=== PATIENT | female | born 1985 | race African-American/Black ===

== ENCOUNTER 2023-12-07 08:33 | Emergency (ER) | payer BC, SELFPAY ==
[2023-12-07 08:56] VITALS: BP 124/71; PULSE 110; RESP 16; TEMP 37.3; O2SAT 98
[2023-12-07 13:09] VITALS: BP 123/79; PULSE 71; RESP 18; O2SAT 99
--- NOTE | 2023-12-07 13:59 | ED.SKABFB ---
HPI - Skin/Abscess/Foreign Bdy General Chief complaint: Skin/Abscess/Foreign Body Stated complaint: abscess right breast Time Seen by Provider: 12/07/23 13:16 This is a 38-year-old female presents with concerns for a her right breast that she noticed approximately 10 days ago. she states it has only been occurring in her right breast but it has changed location fluctuated in size both increasing and decreasing over the past week and half. She has not been , has not had nipple discharge, and denies any appreciable overlying skin changes. No fevers or weight changes or night sweats (does get slightly warm overnight but sleeps under weighted blanket). in addition she has had decreased p.o. intake decreased appetite for the past 6 days with some nausea episode of vomiting yesterday and this morning. 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 her last menstrual period was in mid October. Her periods are all his irregular so she is not particularly concerned that this she might be slightly late this month. she states applying a heating pad has helped with the breast mass and pain and she has not otherwise taken any analgesic medications. Source: patient Mode of arrival: ambulatory Limitations: no limitations Related Data Allergies Allergy/AdvReac Type Severity Reaction Status Date / Time No Known Allergies Allergy Verified 12/07/23 12:50 [facility] Social History Social History Additional living arrangements comments: Exam Narrative: GENERAL: Well-appearing, well-nourished, and in no acute distress. HEAD: Normocephalic, atraumatic. EYES: Non injected, non icteric ENT: Nares clear, no rhinorrhea or epistaxis. moist mucous membranes. NECK: Supple. CHEST/Breast: Speaking in full sentences. No respiratory distress. Pendulant breasts grossly symmetric at 1st appearance initially. No scars/deformities. Dense bilateral breasts. Right breast with large mass along right upper quadrant and left upper quadrant (approximately 7 o'clock to 3 o'clock) but without extension into tail of [place]. No lymphadenopathy in bilateral axillae. HEART: Regular rate and rhythm. Normal bilateral areolas, brown. No nipple discharge. Nipples not inverted. Skin not dry/scaly/no peu d'orange appearance/sores. ABDOMEN: Obese, Soft, nondistended. EXTREMITIES: Normal range of motion. No edema. SKIN: Warm, dry, no rash. NEURO: No focal deficits. Alert and oriented x3. PSYCH: Normal mood and affect. Course Vital Signs Vital signs: Vital Signs Temperature 99.1 F 12/07/23 08:56 Pulse Rate 110 H 12/07/23 08:56 Respiratory Rate 16 12/07/23 08:56 Blood Pressure 124/71 12/07/23 08:56 Pulse Oximetry 98 12/07/23 08:56 Oxygen Delivery Room Air 12/07/23 08:56 Temperature 99.1 F 12/07/23 08:56 Pulse Rate 76 12/07/23 18:20 Respiratory Rate 17 12/07/23 18:20 Blood Pressure 147/86 H 12/07/23 18:20 Pulse Oximetry 99 12/07/23 18:20 Oxygen Delivery Room Air 12/07/23 08:56 MDM - Skin/Abscess/Foreign Bdy MDM Narrative Medical decision making narrative: Patient presents with concern for a mass in her right breast which has been present for 10 days and is changing in size and location (fluctuating location within right breast and increasing and decreasing in size). she denies any fevers or overlying skin changes. Physical exam is appreciable for large mass in the right upper and left upper quadrants of the right breast without extension to the tail of stents, extension to the areola, nipple discharge, or lymphadenopathy. There is no skin induration or overlying skin changes suggestive of an abscess or cellulitis. I do believe patient needs further work-up for this but in the outpatient setting. Plan is to assess patient for covid and influenza a
[2023-12-07] MEDS: ONDANSETRON HCL ODT 4 MG TABLET PO (14:26)
[2023-12-07 14:30] LABS: Influenza A QL RT-PCR Negative (Negative); Influenza B QL RT-PCR Negative (Negative); SARS-CoV-2 RNA PCR Negative (Negative)
[2023-12-07 15:40] VITALS: BP 129/83; PULSE 67; RESP 18; O2SAT 99
[2023-12-07 18:20] VITALS: BP 147/86; PULSE 76; RESP 17; O2SAT 99
== END 2023-12-07 18:21 | disposition home or self-care (01) ==
PROVIDERS: Emergency Provider Student in an Organized Health Care Education/Training Program
DX: N63.10 Unspecified lump in the right breast, unspecified quadrant (principal); R11.2 Nausea with vomiting, unspecified; Z20.822 Contact with and (suspected) exposure to COVID-19
CPT/HCPCS: 87636; 99283; A9270

== ENCOUNTER 2023-12-15 09:23 | Outpatient (CLI) | payer BC, SELFPAY ==
--- NOTE | ~2023-12-15 | MMUS_ITS ---
EXAMINATION: MM diagnostic renu BI w vic, US breast RT complete HISTORY: Right breast pain. Abscess for 2 weeks. TECHNIQUE: Additional 3-D tomosynthesis images of the breasts were performed and synthetic 2-D images were generated. CAD analysis was submitted and interpreted. High resolution complete right breast ul trasound was performed. COMPARISON: No prior studies for comparison. BREAST PARENCHYMAL COMPOSITION: Dense: The breasts are extremely dense, which lowers the sensitivity of mammography. FINDINGS: MAMMOGRAPHIC FINDINGS: There is a large complex mass involving a large area of the right breast in all quadrants. There are no associated calcifications. There is no mammographic evidence for malignancy in the left breast. ULTRASOUND: Complete US of all 4 quadrants of the right breast and retroareolar region was reviewed. The right br east is diffusely heterogeneous with multiple areas of loculated fluid and multiple debris, suspiciou s for large abscess with phlegmonous change given the clinical history. IMPRESSION: 1. Large complex heterogeneous mass with areas of loculated fluid and mobile debris in the right [address] corresponding to the mass seen on mammography. This likely represents an abscess. 2. Recommend ultrasound-guided aspiration for confirmation. BI-RADS CATEGORY 3-PROBABLY BENIGN FINDING . Reviewed, dictated and finalized at location A. ECHNICAL ENGINEERING TECHNICIAN IMPRESSION: 1. Large complex heterogeneous mass with areas of loculated fluid and mobile de bris in the right breast corresponding to the mass seen on mammography. This li nii represents an abscess. 2. Recommend ultrasound-guided aspiration for confirmation. BI-RADS CATEGORY 3-PROBABLY BENIGN FINDING .
== END 2023-12-15 09:24 ==
PROVIDERS: PCP Student in an Organized Health Care Education/Training Program; Visit Provider Student in an Organized Health Care Education/Training Program
DX: N61.1 Abscess of the breast and nipple (principal)
CPT/HCPCS: 76641; 77062; 77066; G0279

== ENCOUNTER 2023-12-20 12:38 | Observation (INO) | payer BC, SELFPAY ==
[2023-12-20] VITALS (12 sets, daily range): BP systolic 120–138; BP diastolic 65–90; PULSE 83–116; RESP 12–21; TEMP 36.1–36.7; O2SAT 93–100
[2023-12-20] MEDS: MORPHINE SULFATE (*CRX) 4 MG/ML INJ IV PUSH (13:43)
[2023-12-20] MEDS: ONDANSETRON INJ 4 MG/2 ML VIAL IV PUSH (13:43)
--- NOTE | 2023-12-20 13:45 | ED.SKABFB ---
HPI - Skin/Abscess/Foreign Bdy General Chief complaint: Skin/Abscess/Foreign Body Stated complaint: lump breast Time Seen by Provider: 12/20/23 13:07 History of Present Illness HPI narrative: Patient is a 38-year-old female who presents ER with right breast pain. She was seen in the ER on 12/07/2023. She was referred to Gynecology. They then performed an outpatient mammogram and breast ultrasound which shows a large abscess. Patient has not had any referral to breast surgery. She has been on oral cephalexin. Pain is worsening and she has been dealing with this for 3 weeks so she came in today for further evaluation. No drainage. No fevers or chills or sweats. Related Data Home Medications Medication Instructions Recorded Confirmed cephalexin 500 mg capsule mg 12/20/23 Allergies Allergy/AdvReac Type Severity Reaction Status Date / Time No Known Allergies Allergy Verified 12/20/23 17:32 Review of Systems Review of Systems: All systems reviewed & are unremarkable except as noted in HPI and below Constitutional: Constitutional: Reports no additional constitutional complaints ENT: Reports system reviewed and no additional complaints, except as documented Cardiovascular: Cardiovascular: Reports no additional cardiovascular complaints Respiratory: Respiratory: Reports no additional respiratory complaints Integumentary/Breasts: Skin/Breast: Reports breast pain, Reports breast mass and Reports erythema PMFSH Social History Social History Smoking status: Never smoker Alcohol intake: never Substance use: never Substance use type: does not use Do You Feel Safe in your Home?: Yes Lack of Transportation: No Lack of Food: Never True Current Housing: I Have Housing Concerned About Future Housing: No Difficulty Paying Gas/Electric Bills: No Difficulty Paying for Meds: No Currently Unemployed: No Education: Don't Know Difficulty w/ Childcare or Family Care: No Spiritual care concerns: No Exam Narrative: GENERAL: Well-appearing, Morbidly obese, and in no acute distress. HEAD: Normocephalic, atraumatic. ENT: Mucous membranes moist. NECK: Supple. CHEST: Clear to auscultation. No respiratory distress. HEART: Regular rate and rhythm. Normal peripheral pulses. EXTREMITIES: Normal range of motion. No edema. SKIN: Warm, dry, no rash. Right breast with large fluctuant abscess over the medial aspect of the areola and breast. There is slight erythema but no significant cellulitis. Normal left breast. NEURO: Alert and oriented x3. PSYCH: Normal mood and affect. Course Course Emergency Course: 1345: Discussed with Dr. Mg, she is at the bedside examining the patient. we have discussed patient's outpatient mammogram and ultrasound. 1400: Patient will go to the OR. Lab work ordered. Patient has been NPO since yesterday evening. Vital Signs Vital signs: Vital Signs Temperature 97.4 F L 12/20/23 12:40 Pulse Rate 116 H 12/20/23 12:40 Respiratory Rate 20 12/20/23 12:40 Blood Pressure 122/74 12/20/23 12:40 Pulse Oximetry 100 12/20/23 12:40 Oxygen Delivery Room Air 12/20/23 12:40 Temperature 98.0 F 12/20/23 18:10 Pulse Rate 88 12/20/23 18:10 Respiratory Rate 17 12/20/23 18:10 Blood Pressure 137/90 12/20/23 18:10 Pulse Oximetry 97 12/20/23 18:10 Oxygen Delivery Room Air 12/20/23 17:47 Oxygen Flow Rate 8 12/20/23 16:00 MDM - Skin/Abscess/Foreign Bdy Lab Data 12/20/23 13:42 12/20/23 13:42 Labs: Lab Results 12/20/23 12/20/23 Range/Units 13:41 13:42 WBC 14.7 H (4.5-10.0) K/mm3 RBC 4.48 (4.2-5.4) M/mm3 Hgb 12.4 (12.0-15.0) g/dL Hct 39.5 (37.0-47.0) % MCV 88.2 (80-100) fl MCH 27.7 (26-34) pg MCHC 31.4 L (32-36) g/dl RDW 13.6 (11.5-14.5) % Plt Count 511 H (150-375) k/mm3 MPV 9.5 (7.4-10.4) fl Immature Gran % (Auto) 0.6 H (0-0.5) % Neut
--- NOTE | 2023-12-20 13:52 | P.CONGS_ITS ---
Assessment and Plan Assessment and plan (1) Abscess of breast: Code(s): N61.1 - Abscess of the breast and nipple Status: Acute (2) Abscess of right breast: Code(s): N61.1 - Abscess of the breast and nipple Status: Acute Assessment and Plan: 38-year-old female presenting for evaluation of 2-3 week history of worsening right breast pain. On exam, she has a very enlarged and erythematous right breast with the area of fluctuance that is consistent with an abscess. Images performed during a prior visit were reviewed and patient would benefit from incision and drainage of this large breast abscess. Risks of the procedure were discussed with the patient which included but not limited to risk of bleeding, infection, recurrence, asymmetry, scar, wound healing problems, pain, possible need for additional procedures in the future, as well as the risk of anesthesia. all questions were answered patient agrees to proceed. We will plan for OR today for incision and drainage of large right breast abscess under anesthesia. Plan Thank you for allowing me to participate in the care of Ms. Rivera. History of Present Illness Consult details Consult date: 12/20/23 Narrative: 38-year-old female who presents to the ER today with 3 week history of right breast pain. Patient was previously evaluated by ER on Dec 07, and intruted to see her obgyn. She was seeing by her OBGYN last week, and placed on cephalexin. She reports some chills at home but no fevers. Mild nausea and 1 episode of emesis today. US and mammogram performed last week showed large loculated abscess, and patient returned to ER for further evaluation. She has been NPO sin ce midnight. Review of Systems Review of Systems: All systems reviewed & are unremarkable except as noted in HPI and below Meds Home Medications and Allergies Home Medications Medication Instructions Recorded Confirmed Type cephalexin 500 mg capsule mg 12/20/23 History Allergies Allergy/AdvReac Type Severity Reaction Status Date / Time No Known Allergies Allergy Verified 12/20/23 12:46 Vital Signs Vital Signs - 24 hr 12/20/23 12:40 Temperature 36.3 C L Pulse Rate 116 H Respiratory Rate 20 Blood Pressure 122/74 Pulse Oximetry 100 Oxygen Delivery Room Air Exam Narrative: Right breast appears significantly enlarged and erythematous especially around medial aspect of areola. No ecchymosis or crepitus noted. Exam limited due to patient's pain. Const: General: comfortable and no acute distress Resp: Effort & Inspection: normal respiratory effort Cardio: Rate: regular rate and tachycardic Skin: General skin exam: normal color Extrem: General: normal to inspection Results Labs 12/20/23 13:42 12/20/23 13:42 Labs: All other labs normal.
[2023-12-20 13:55] LABS: Basophils Absolute Auto 0.1 K/mm3 (0.0-0.1); Basophils Percent Auto 0.3 % (0.2-1.2); Eosinophils Absolute Auto 0.1 K/mm3 (0-0.3); Eosinophils Percent Auto 0.8 % (0-4.4); Hematocrit 39.5 % (37.0-47.0); Hemoglobin 12.4 g/dL (12.0-15.0); Immature Granulocyte Absolute 0.09 K/mm3 (0.00-0.031); Immature Granulocyte Percent A 0.6 % (0-0.5); Lymphocytes Absolute Auto 3.63 K/mm3 (0.9-3.2); Lymphocytes Percent Auto 24.7 % (18.3-44.2); Mean Corpuscular HGB Conc 31.4 g/dl (32-36); Mean Corpuscular Hemoglobin 27.7 pg (26-34); Mean Corpuscular Volume 88.2 fl (80-100); Mean Platelet Volume 9.5 fl (7.4-10.4); Monocytes Absolute Auto 1.2 K/mm3 (0.1-0.6); Monocytes Percent Auto 8.2 % (2.6-8.5); Neutrophils Absolute Auto 9.6 K/mm3 (1.3-6.7); Neutrophils Percent Auto 65.4 % (45.5-73.1); Platelet Count Result 511 k/mm3 (150-375); Red Blood Count 4.48 M/mm3 (4.2-5.4); Red Cell Distribution Width 13.6 % (11.5-14.5); White Blood Count 14.7 K/mm3 (4.5-10.0)
--- NOTE | 2023-12-20 13:59 | WPDANESEPPF ---
Anes - Initial Pre Proc Eval Procedure: Operation Date: 12/20/23 14:30 Proposed Procedures p Incision and Drainage Right Breast Abscess - Norma Jose Mg MD Date/Time: 12/20/23 13:59 Pre Op Diagnosis: lump breast Patient Data Age: 38 Gender: F Height: 1.73 m Weight: 189 kg Last Vital Signs Temp 36.3 C L 12/20/23 12:40 Pulse 116 H 12/20/23 12:40 Resp 20 12/20/23 12:40 BP 122/74 12/20/23 12:40 Pulse Ox 100 12/20/23 12:40 O2 Del Method Room Air 12/20/23 12:40 Allergies Allergy/AdvReac Type Severity Reaction Status Date / Time No Known Allergies Allergy Verified 12/20/23 12:46 Home Medications Medication Instructions Recorded Confirmed Type cephalexin 500 mg capsule mg 12/20/23 History Laboratory Tests 12/20/23 12/20/23 13:41 13:42 WBC Pending RBC Pending Hgb Pending Hct Pending MCV Pending MCH Pending MCHC Pending RDW Pending Plt Count Pending MPV Pending Immature Gran % (Auto) Pending Neut % (Auto) Pending Lymph % (Auto) Pending [place] % (Auto) Pending Eos % (Auto) Pending Baso % (Auto) Pending Lymph # (Auto) Pending [place] # (Auto) Pending Eos # (Auto) Pending Baso # (Auto) Pending Abs Immat Gran (auto) Pending Absolute Neuts (auto) Pending Absolute Nucleated RBC Pending Nucleated RBC % Pending PT Pending INR Pending APTT Pending Sodium Pending Potassium Pending Chloride Pending Carbon Dioxide Pending Anion Gap Pending BUN Pending Creatinine Pending Estim Creat Clear Calc Pending Estimated GFR Pending Glucose Pending Calcium Pending Total Bilirubin Pending AST Pending ALT Pending Alkaline Phosphatase Pending Total Protein Pending Albumin Pending Patient hx anesthesia problems: none Family hx anesthesia problems: none Results Review: All pre-operative results and documents have been reviewed as part of the pre-operative evaluation. Anes - Eval Final PreProcedure Day of Procedure 12/20/23 13:59 Patient weight: super morbidly obese Heart: regular rate and rhythm Lungs: clear to auscultation Airway: Mallampati scale class III Neurological: alert and oriented Last oral intake: >/= 8 hours ASA classification: III Emergent: yes Anesthetic plan: proceed Anesthesia type and monitoring: general ETT and standard monitoring Results Review: All pre-operative results and documents have been reviewed as part of the pre-operative evaluation. Informed Consent: The patient's anesthetic plan and its attendant risks and benefits were discussed with the patient/family/POA. Questions were solicited and answers provided to the satisfaction of the patient/family/POA.
[2023-12-20 14:06] LABS: Alanine Aminotransferase 14 U/L (6-35); Albumin Level 3.5 g/dL (3.5-5.1); Alkaline Phosphatase 107 U/L (38-126); Anion Gap 9 mmol/L (8-16); Aspartate Amino Transferase 22 U/L (14-36); Blood Urea Nitrogen 6 mg/dL (7-17); Calcium 8.9 mg/dL (8.4-10.2); Carbon Dioxide 29 mmol/L (22-30); Chloride 96 mmol/L (98-107); Estimated CRCL calculation 146 ml/min; Estimated Glomerular Filt Rate > 60; Glucose 247 mg/dL (65-110); Potassium 3.3 mmol/L (3.4-5.0); Sodium 134 mmol/L (137-145)
[2023-12-20 14:11] LABS: INR 1.2; Partial Thromboplastin Time 32.1 SECONDS (22.3-36.8); Prothrombin Time 16.3 Seconds (11.1-14.7)
[2023-12-20] MEDS: LACTATED RINGERS 1,000 ML 30 ML IV CONT ×2 (15:01→16:00)
[2023-12-20] MEDS: ceFAZolin 3 GM/D5W 100 ML 100 ML IVPB (15:20)
[2023-12-20] MEDS: LACTATED RINGERS 1,000 ML 100 ML IV CONT (16:00)
[2023-12-20 16:10] LABS: Glucose Point of Care 240 mg/dl (65-105)
[2023-12-20] MEDS: fentaNYL CITRATE INJ (*CRX) 100 MCG/2 ML VIAL 25 MCG IV PUSH ×2 (16:11→16:20)
--- NOTE | 2023-12-20 16:55 | P.OP_ITS ---
Procedure Note - Detailed Date of Procedure 12/20/23 Pre-op Diagnosis Right breast abscess Post-op Diagnosis Same Procedure Performed Incision and drainage of large right breast abscess, washout, sharp debridement, and placement of [place] drain Surgeon Norma Mg MD Anesthesia General Indications 38-year-old female presented to the ER with 3 week history of worsening right breast pain. On exam, her right breast was extremely enlarged compared to the left with associated induration and erythema. She had a very large area of fluctuance that was consistent with previous ultrasound was obtained a week prior that that demonstrated a large loculated abscess. Given the size of the fluid collection, she was recommended for incision and drainage in the operating room. Risks of the procedure were discussed with the patient which included but not limited to risk of bleeding, infection, damage to nearby structures, recurrence, possible need for additional procedures in the future, wound healing problems, scar, pain, asymmetry as well as the risk of anesthesia. All questions were answered patient agrees to proceed. Description of Procedure Patient was identified in the preoperative holding area and brought to the operating room suite. She was laid supine in the operating table and sequential compression devices were applied. General anesthesia was induced without difficulty. The right chest area was prepped and draped in a sterile fashion. An incision was made at the area of fluctuance on the medial aspect of the breast just medial to the areola and dissection was carried down through the subcutaneous tissue until the large abscess cavity was encountered. Copious amount of purulent fluid was evacuated for a total of 1100 cc. A culture was obtained, and the cavity was then irrigated with 3 L of saline. There was a small area of necrotic tissue superficially that was sharply debrided that was approximately 3 cm in length by 1 cm across. I probed the entire cavity to ensure all the loculations were completely broken up and the cavity measured almost the entire length and with of the breast that was approximately 20 cm x 15cm. Given the large area, this was felt to be better approached with a [place] drain for continuous drainage as opposed to packing. A large Apollo drain was then placed in the cavity and secured to the skin with a nylon suture. Another opening was performed in the skin on the lateral part of the areola in the [place] was also brought out through this incision and secured to the skin also with a nylon suture. The previous incision area was loosely approximated with interrupted 3-0 Prolene sutures. A compression dressing was applied over the breast with gauze followed by ABD pads and foam tape. Patient was then awoken from anesthesia and taken to the recovery area in stable condition. All needles, instruments, and sponge counts were correct as reported by the operating room staff. Patient tolerated the procedure well with no immediate complications. Estimated Blood Loss 10 Drains Yes ([place] x1) Packing No Pathology None sent Complications No immediate complications Condition Stable Disposition PACU [facility] Billing Surgery - Charge Forward: Surgery Billing
[2023-12-20] MEDS: PIPERACILLN/TAZ 3.375GM/NS50ML 3.375 GM/50 ML BAG IVPB (17:50)
[2023-12-20] MEDS: DOCUSATE SODIUM 100 MG CAPSULE PO (17:50)
[2023-12-20] MEDS: VANCOMYCIN 1,250 MG/NS 250 ML 1,250 MG/250 ML BAG 125 MG IVPB (18:51)
--- NOTE | 2023-12-20 19:23 | PM.IMCN ---
Assessment and Plan Assessment and plan (1) Abscess of right breast: Code(s): N61.1 - Abscess of the breast and nipple Status: Acute Assessment and Plan: - ultrasound and mammogram done last week showed large loculated abscess - primary admission through breast surgery, Saurav EVANS currently following with case - I/D, washout, debridement, and placement of [place] drain performed today, 12/19 - continue wound care and drain management - wound culture obtained on 12/19 - started on Vanc and Zosyn on 12/19. Given Ancef x1. - pain management - antiemetics p.r.n. (2) Elevated glucose: Code(s): R73.09 - Other abnormal glucose Status: Acute Assessment and Plan: - patient educated at bedside about glucose checks, current glucose levels, and high probability of diabetes diagnosis - hypoglycemia protocol - POC blood glucose ACHS - glucose in the evening 404. add glargine 5 units subQ x1, 5 units regular insulin subQ x1, bedside RN verbally instructed to to give 7 units of NovoLog to increase corrective dose - correct regimen ordered - low dose TIDWM and HS, suspect patient may need higher dosing. - A1C ordered - will need soaking pit operator consultation if A1C abnormal - diabetic diet ordered Plan Patient here with large loculated right breast abscess, I&D/Washout/Drain placement in the OR today (12/19) with 1100 cc of purulent drainage, started on Vancomycin and Zosyn. Culture pending. Glucose levels very elevated, suspect patient is diabetic. A1C pending. Diabetic orders in place. Home Meds/Chronic Conditions -none Diet: Regular GI Prophylaxis: Not currently indicated DVT Prophylaxis: SCDs Lines: Peripheral Code Status: Full code HPI Date of Consult Consult date: 12/20/23 Requesting Physician: Norma Mg MD Primary Care Provider: PHYSICIAN NOT ON STAFF Consult Narrative Reason for consult: Medical Managment Narrative: 38 y/o F presents here with R breast pain with no known PMH or previous surgeries. Patient presented to the ED from home for evaluation of right breast pain. Patient had been previously seen in the emergency department on 12/07/2023 for same complaint. Breast pain has been ongoing for the past 2 to 3 weeks. She was referred to Gynecology at that time. Patient had outpatient mammogram and breast ultrasound performed, which she reports showed a large abscess. Currently on Keflex. No active drainage from site. Denying associated fever, chills, or body aches. No previous abscesses or wounds. Has occasionally developed small pimples to the lower folds of her breasts. No known family history of cancers. No known trauma or wound prior to erythema and swelling development. Patient reports that when she first noted the area, it was firm and approximately the size of the orange. Overtime area increased to the size of a melon and became fluctuant. Initial VS at presentation: 97.4 F, HR 116, RR 20, 122/74, 100% on RA. ED workup showed: WBC 14.7, no anemia, INR 1.2, potassium 3.3, glucose 247, creatinine 0.8. Patient was taken to the OR for I&D of large right breast abscess, washout, sharp debridement, and placement of [place] drain. Per procedure note, when abscess cavity was dissected there was copious amount of purulence fluid. Total evacuation of 1100 cc. Cavity measured approximately 20 x 15 cm. Review of Systems Review of Systems: All systems reviewed & are unremarkable except as noted in HPI and below PMFSH Social History Social History Smoking status: Never smoker Alcohol intake: never Substance use: never Substance use type: does not use Do You Feel Safe in your Home?: Yes Lack of Transportation: No Lack of Food: Never True Current Housing: I Have Housing Concerned About Future Housing: No Difficulty Paying Gas/Electric Bills: No Difficulty Paying for Meds: No Currently Unemployed: No Education: Don't Know
[2023-12-20] MEDS: VANCOMYCIN 1,250 MG/NS 250 ML 1,250 MG/250 ML BAG 166.67 MG IVPB (20:49)
[2023-12-20] MEDS: INSULIN ASPART (*BKC) 100 UNITS/ML 7 UNITS SUB-Q (23:08)
[2023-12-20] MEDS: INSULIN HUMAN REGULAR (*BKC) 100 UNITS/ML SUB-Q (23:08)
[2023-12-20 23:13] LABS: Glucose Point of Care 404 mg/dl (65-105)
[2023-12-21] MEDS: PIPERACILLN/TAZ 3.375GM/NS50ML 3.375 GM/50 ML BAG IVPB ×3 (00:31→13:08)
[2023-12-21 02:09] LABS: Glucose Point of Care 395 mg/dl (65-105)
[2023-12-21 02:42] VITALS: BP 138/79; PULSE 79; RESP 20; TEMP 36.1; O2SAT 97
[2023-12-21] MEDS: VANCOMYCIN 1,500 MG/NS 500 ML 1,500 MG/500 ML BAG 250 MG IVPB (06:09)
[2023-12-21 07:14] LABS: Hematocrit 34.7 % (37.0-47.0); Hemoglobin 10.9 g/dL (12.0-15.0); Mean Corpuscular HGB Conc 31.4 g/dl (32-36); Mean Corpuscular Hemoglobin 27.7 pg (26-34); Mean Corpuscular Volume 88.3 fl (80-100); Mean Platelet Volume 9.8 fl (7.4-10.4); Platelet Count Result 427 k/mm3 (150-375); Red Blood Count 3.93 M/mm3 (4.2-5.4); Red Cell Distribution Width 13.3 % (11.5-14.5); White Blood Count 10.5 K/mm3 (4.5-10.0)
[2023-12-21 07:31] LABS: Anion Gap 5 mmol/L (8-16); Blood Urea Nitrogen 9 mg/dL (7-17); Calcium 8.5 mg/dL (8.4-10.2); Carbon Dioxide 29 mmol/L (22-30); Chloride 97 mmol/L (98-107); Estimated CRCL calculation 100 ml/min; Estimated Glomerular Filt Rate 60; Glucose 325 mg/dL (65-110); Potassium 3.5 mmol/L (3.4-5.0); Sodium 131 mmol/L (137-145)
[2023-12-21 08:00] VITALS: BP 139/84; PULSE 71; RESP 18; TEMP 36; O2SAT 99
[2023-12-21 08:16] LABS: Glucose Point of Care 293 mg/dl (65-105)
[2023-12-21 08:49] LABS: Hemoglobin A1C 12.1 % (<5.7)
[2023-12-21] MEDS: INSULIN ASPART (*BKC) 100 UNITS/ML SUB-Q ×2 (09:01→13:09)
[2023-12-21 11:45] LABS: Glucose Point of Care 317 mg/dl (65-105)
[2023-12-21 12:00] VITALS: BP 142/97; PULSE 73; RESP 18; TEMP 36; O2SAT 99
--- NOTE | 2023-12-21 12:32 | PM.DS ---
DS: Admitting Diagnosis Discharge Date 12/21/2023 Admitting Diagnosis 1. Right breast abscess DS: Discharge Diagnosis Discharge Diagnosis (1) Abscess of right breast: Code(s): N61.1 - Abscess of the breast and nipple Status: Acute Assessment and Plan: Patient underwent incision and drainage of right breast abscess on December 19 with placement of a [place] drain. Patient was instructed on daily dressing changes and she will be returning to see me next week for a follow-up visit. (2) Diabetes mellitus: Qualifiers: Diabetes mellitus type: type 2 Code(s): E11.9 - Type 2 diabetes mellitus without complications Status: Acute Assessment and Plan: Patient was diagnosed with new onset diabetes during hospital stay after blood sugars were noted to be consistently elevated. Her hemoglobin A1c was 12.1, which again supported the diagnosis. Patient was evaluated by hospital educator and discharged home on insulin regimen with plan to follow-up with a primary care physician for further recommendation and management of her diabetes. Plan Plan discharge today with follow-up with breast surgery for management and wound care of right breast. Plan to follow up with primary care for evaluation and management of newly diagnosed diabetes. DS: Summary Hospital Course Reason for hospitalization: Hospital Course: Patient was admitted for observation after undergoing incision and drainage of large right breast abscess on December 19. She received IV antibiotics overnight and did not require any pain medication. On postop day 1, she was doing well, and reported no pain on examination. She has been afebrile and her leukocytosis has normalized. Patient was found to have poorly controlled blood sugars during her hospitalization with the hemoglobin A1c of 12.1, indicating a new diagnosis of type 2 diabetes. She was evaluated by the hospital educator and placed on a insulin regimen by the hospitalist service. Patient was deemed ready for discharge on postop day 1. Status at Discharge Functional status at discharge: independent ambulation Time Spent with Patient Time attestation: Total time spent providing and/or coordinating discharge services: 45 Time spent: Greater than 30 minutes Exam Const: General: comfortable and no acute distress Eyes: General: appearance normal, both eyes and all related structures Resp: Effort & Inspection: normal respiratory effort Cardio: Rate: regular rate Skin: General skin exam: normal color Other: Right breast incisions examined today appear clean and dry. No purulent fluid or foul odor was noted. No ecchymosis or crepitus. Previously noted erythema is significantly improved from yesterday. Extrem: General: normal to inspection DS: Data Data Completed and Pending Labs on day of discharge: Labs from last 24 hours 12/21/23 12/21/23 12/21/23 11:30 08:03 06:31 WBC 10.5 H RBC 3.93 L Hgb 10.9 L Hct 34.7 L MCV 88.3 MCH 27.7 MCHC 31.4 L RDW 13.3 Plt Count 427 H MPV 9.8 Immature Gran % (Auto) Neut % (Auto) Lymph % (Auto) [place] % (Auto) Eos % (Auto) Baso % (Auto) Lymph # (Auto) [place] # (Auto) Eos # (Auto) Baso # (Auto) Abs Immat Gran (auto) Absolute Neuts (auto) Absolute Nucleated RBC Nucleated RBC % PT INR APTT Sodium 131 L Potassium 3.5 Chloride 97 L Carbon Dioxide 29 Anion Gap 5 L BUN 9 Creatinine 1.20 H Estim Creat Clear Calc 100 Estimated GFR 60 Glucose 325 H POC Capillary Glucose 317 H 293 H Hemoglobin A1c 12.1 H Calcium 8.5 Total Bilirubin AST ALT Alkaline Phosphatase Total Protein Albumin Blood Type Antibody Screen 12/21/23 12/20/23 12/20/23 00:23 20:55 16:08 WBC RBC Hgb Hct MCV MCH MCHC RDW Plt Count MPV Immature Gran %
--- NOTE | 2023-12-21 13:04 | PM.IMPN ---
Progress Note: A&P Assessment and Plan (1) Abscess of right breast: Code(s): N61.1 - Abscess of the breast and nipple Status: Acute Assessment and Plan: Ultrasound and mammogram done last week showed large loculated abscess - primary admission through breast surgery following with case - I/D, washout, debridement, and placement of [place] drain performed today, 12/19 - continue wound care and drain management - wound culture obtained on 12/19 and pending. Gram stain showing gram positive cocci - started on Vanc and Zosyn on 12/19. Given Ancef x1. - pain well controlled. Plan is home today with abx, dressing changes (2) Diabetes mellitus: Qualifiers: Diabetes mellitus type: type 2 Code(s): E11.9 - Type 2 diabetes mellitus without complications Status: Acute Assessment and Plan: Glucose elevated here. A1c 12.3 Patient educated of the new diagnosis of diabetes - hypoglycemia protocol - POC blood glucose ACHS Home today. music educator unable to see today so will order as outpatient fire operations forester to see before discharge. Home with metformin and Empagliflozin - side efects of mediations discussed She will be setting up an appointment with a PCP (one who sees other family members) (3) Morbid obesity: Code(s): E66.01 - Morbid (severe) obesity due to excess calories Status: Acute Assessment and Plan: Healthy lifestyle encouraged. Plan Diet: Diabetic DVT Prophylaxis: SCDs Code Status: Full code Subjective Date/time seen: 12/21/23 13:04 Interval history: Consulted on a 38yo female here for breast abscess. No complaints. Feels ready for discharge. Breast pain well controlled. Able to do dressing changes. Exam Narrative: AF 96.8 142/97 73 18 99% ra Gen - NARD Chest - CTA bilaterally, nml RR. right breast dressing with small amount of serosang staining CV - RRR S1/S2 Abd - Soft, obese, NT Ext - No pedal edema Psych - Nml mood and affect Skin - Warm and dry. Acanthosis nigricans noted Objective Data Vital Signs Vital Signs: Vital Signs - 24 hr 12/20/23 14:26 12/20/23 16:00 12/20/23 16:15 Temperature 98.1 F 97.4 F L Pulse Rate 107 H 98 91 Respiratory Rate 14 14 16 Blood Pressure 127/65 135/80 123/82 Pulse Oximetry 100 100 95 Oxygen Delivery Room Air Simple Face Mask Room Air Oxygen Flow Rate 8 12/20/23 16:30 12/20/23 16:45 12/20/23 17:00 Temperature Pulse Rate 91 89 89 Respiratory Rate 21 H 12 16 Blood Pressure 126/77 127/79 120/79 Pulse Oximetry 95 93 95 Oxygen Delivery Room Air Room Air Room Air Oxygen Flow Rate 12/20/23 17:25 12/20/23 17:40 12/20/23 17:47 Temperature 97.7 F 97.6 F Pulse Rate 91 88 88 Respiratory Rate 17 17 17 Blood Pressure 136/70 124/70 Pulse Oximetry 96 97 97 Oxygen Delivery Room Air Oxygen Flow Rate 12/20/23 18:10 12/20/23 20:42 12/21/23 02:42 Temperature 98.0 F 96.9 F L 96.9 F L Pulse Rate 88 83 79 Respiratory Rate 17 20 20 Blood Pressure 137/90 138/81 138/79 Pulse Oximetry 97 98 97 Oxygen Delivery Oxygen Flow Rate 12/21/23 08:00 12/21/23 12:00 Temperature 96.8 F L 96.8 F L Pulse Rate 71 73 Respiratory Rate 18 18 Blood Pressure 139/84 142/97 H Pulse Oximetry 99 99 Oxygen Delivery Oxygen Flow Rate Intake/Output Intake/Output: Intake & Output 12/18/23 12/19/23 12/20/23 12/21/23 23:59 23:59 23:59 23:59 Intake Total 1450 1200 Balance 1450 1200 Meds/Results Medications: Active Medications Generic Name Dose Route Start Last Admin Trade Name Freq PRN Reason Stop Dose Admin Acetaminophen 500 mg 12/20/23 15:57 Acetaminophen 500 Mg Tablet PO Q6H PRN Mild Pain (1-3) or Fever Hydrocodone Bitart/Acetaminophen 2 tab 12/20/23 15:57 Hydrocodone/Acetaminophen (*Crx) 5-325 Mg Tablet PO Q4H PRN Pain Rated 7-10 Hydrocodone Bitart/Acetaminophen 1 tab 12/20/23 15:57 Hydrocodone/Acetaminop
[2023-12-21] MEDS: HYDROcodone/acetaminophen (*CRX) 5-325 MG TABLET 1 TAB PO (13:09)
[2023-12-21 13:20] VITALS: BMI 63.3
--- NOTE | 2023-12-22 10:04 | WPDHPUPDATE1 ---
History and Physical Update Update Date/Time: 12/20/23 16:00 History and Physical has been reviewed, including an updated exam of the patient. There are NO changes in the patient's condition. Risks, benefits, and alternatives have been discussed and questions answered. Patient agrees to proceed with procedure.
--- NOTE | 2023-12-31 09:49 | PCCDE ---
12/31/2023 Attempted to follow up by phone. Both cell numbers in demographics attempted -> recording call unable to be completed [facility]
== END 2023-12-21 16:40 | disposition home or self-care (01) ==
LOC: ANHED 14:03 → ANHSURGERY 14:59 → ANH3MEDSUR 17:29
PROVIDERS: Student in an Organized Health Care Education/Training Program; Admitting Provider Surgery; Emergency Provider Emergency Medicine; PCP Surgery; Visit Provider Surgery
PROC: (CPT 19120; principal; 2023-12-20 14:30)
DX: N61.1 Abscess of the breast and nipple (principal); E11.9 Type 2 diabetes mellitus without complications; E66.01 Morbid (severe) obesity due to excess calories; Z68.44 Body mass index [BMI] 60.0-69.9, adult; Z79.2 Long term (current) use of antibiotics
CPT/HCPCS: 19120; 36415; 80048; 80053; 82948; 83036; 85025; 85027; 85610; 85730; 86850; 86900; 86901; 87070; 87075; 87147; 87181; 87205; 96374; 96375; 99285; A9270; G0378; J0330; J0690; J1100; J1170; J1815; J2250; J2270; J2405; J2543; J2704; J3010; J3370; J7120